=== PATIENT | male | born 1960 | race Caucasian/White ===

== ENCOUNTER 2017-09-22 10:50 | Emergency (ER) | payer MEDICARE ==
[2017-09-22] MEDS ORDERED: MORPHINE SULFATE 2 MG/ML 1ML SYG ONE (11:15)
[2017-09-22] MEDS ORDERED: METHYLPREDNISOLONE SOD SUCC 125MG/2ML VIAL ONE (11:15)
== END 2017-09-22 13:22 | disposition home or self-care (01) ==
LOC: EDH 10:50
DX: M10.9 Gout, unspecified (principal); I25.10 Atherosclerotic heart disease of native coronary artery without angina pectoris; E11.9 Type 2 diabetes mellitus without complications; E78.00 Pure hypercholesterolemia, unspecified; I10 Essential (primary) hypertension; I25.2 Old myocardial infarction; E78.5 Hyperlipidemia, unspecified
CPT/HCPCS: 96372 ×2; 99284; J2930

== ENCOUNTER 2017-09-23 11:40 | Emergency (ER) | payer MEDICARE ==
[2017-09-23] MEDS ORDERED: INSULIN HUMULIN R 100 UNIT/ML 3ML ONE ×3 (12:53→16:04)
[2017-09-23 13:20] LABS: ALBUMIN 3.7 g/dL (3.5-5.0); BILIRUBIN,TOTAL 0.5 mg/dL (0.2-1.0); CREATININE 1.3 mg/dL (0.5-1.5); POTASSIUM 4.2 mmol/L (3.5-5.1); TOTAL PROTEIN, SERUM 7.8 g/dL (6.0-8.3)
[2017-09-23 14:19] LABS: BASOPHILS % (AUTO) 0.2 % (0.0-5.0); HEMATOCRIT 38.6 % (42-54); LYMPHOCYTES % (AUTO) 3.1 % (21.0-51.0); MEAN CORPUSCULAR HEMOGLOBIN 31.7 pg (27.0-33.0); MEAN CORPUSCULAR HGB CONC 32.9 g/dL (32.0-36.0); MEAN CORPUSCULAR VOLUME 96.3 fL (79-99); NEUTROPHILS % (AUTO) 89.7 % (40.0-77.0); PLATELET COUNT (AUTO) 180 K/uL (130-400); RED BLOOD CELL COUNT(AUTO) 4.01 MIL/uL (4.50-6.20); RED CELL DISTRIBUTION WIDTH 14.9 % (11.0-15.5); WHITE BLOOD COUNT (AUTO) 15.7 K/uL (4.8-10.8)
== END 2017-09-23 17:10 | disposition home or self-care (01) ==
LOC: EDH 11:40
DX: E11.65 Type 2 diabetes mellitus with hyperglycemia (principal); I25.10 Atherosclerotic heart disease of native coronary artery without angina pectoris; E78.00 Pure hypercholesterolemia, unspecified; E78.6 Lipoprotein deficiency; I10 Essential (primary) hypertension; I25.2 Old myocardial infarction; Z98.890 Other specified postprocedural states
CPT/HCPCS: 36415; 80053; 82948 ×4; 85025; 96374; 96376; 99284; J1815 ×3

== ENCOUNTER 2017-11-08 18:09 | Inpatient (IN) | payer MEDICARE ==
[~2017-11-08] VITALS: Ht 170.2 cm; Wt 94.4 kg
[2017-11-08 18:22] LABS: BASOPHILS % (AUTO) 0.9 % (0.0-5.0); EOSINOPHILS % (AUTO) 0.1 % (0.0-8.0); HEMATOCRIT 39.9 % (42-54); LYMPHOCYTES % (AUTO) 4.9 % (21.0-51.0); MEAN CORPUSCULAR HEMOGLOBIN 31.5 pg (27.0-33.0); MEAN CORPUSCULAR HGB CONC 32.9 g/dL (32.0-36.0); MEAN CORPUSCULAR VOLUME 95.8 fL (79-99); MONOCYTES % (AUTO) 3.3 % (3.0-13.0); NEUTROPHILS % (AUTO) 90.8 % (40.0-77.0); PLATELET COUNT (AUTO) 255 K/uL (130-400); RED BLOOD CELL COUNT(AUTO) 4.17 MIL/uL (4.50-6.20); RED CELL DISTRIBUTION WIDTH 15.3 % (11.0-15.5); WHITE BLOOD COUNT (AUTO) 13.7 K/uL (4.8-10.8)
[2017-11-08] MEDS ORDERED: SODIUM CHLORIDE 0.9% 1000ML 1,000 ML IV ONE (18:31)
[2017-11-08] MEDS ORDERED: ASPIRIN 325 MG TABLET ONE (18:31)
[2017-11-08 18:33] LABS: CARBON DIOXIDE 25 mmol/L (21-32); CHLORIDE 97 mmol/L (101-111); GLOMERULAR FILTR. RATE CALC 37 mL/min (>60); GLUCOSE,RANDOM 374 mg/dL (70-105); POTASSIUM 5.3 mmol/L (3.5-5.1); SODIUM SERUM 134 mmol/L (136-145); UREA NITROGEN, BLOOD 65 mg/dL (7-18)
[2017-11-08 18:54] LABS: ALANINE AMINOTRANSFERASE 27 U/L (12-78); ASPARTATE AMINOTRANSFERASE 6 U/L (10-37); BILIRUBIN,TOTAL 0.7 mg/dL (0.2-1.0); CREATINE KINASE MB 2.8 ng/mL (0.5-3.6); CREATINE KINASE, TOTAL 75 U/L (21-232); LIPASE 699 U/L (114-286); TOTAL PROTEIN, SERUM 8.8 g/dL (6.0-8.3)
[2017-11-08 18:55] LABS: ALBUMIN < 0.6 g/dL (3.5-5.0)
[2017-11-08 19:57] LABS: BILIRUBIN,URINE Negative (NEGATIVE); COLOR,URINE Yellow (YELLOW); GLUCOSE, URINE (UA) 500 mg/dL (NEGATIVE); KETONES,URINE Negative (NEGATIVE); LEUKOCYTE ESTERASE ,URINE Negative (NEGATIVE); NITRATE,URINE Negative (NEGATIVE); OCCULT BLOOD,URINE Negative (NEGATIVE); PROTEIN,URINE Negative (NEGATIVE); UROBILINOGEN,URINE 0.2 mg/dL (0.2-1.0)
[2017-11-08 20:00] LABS: APPEARANCE,URINE CLEAR (CLEAR)
[2017-11-08] MEDS ORDERED: LIDOCAINE HCL 2% VISCOUS 15 ML UDCUP ONE (20:15)
[2017-11-08] MEDS ORDERED: MAGNESIUM HYDROXIDE 30 ML/UDCUP ONE (20:15)
[2017-11-08 20:20] LABS: BACTERIA,URINE Rare /HPF (None Seen); RBC,URINE 0-1 /HPF (0-1); SQUAMOUS EPITHELIAL CELL,UR Rare /HPF (0-2); WBC,URINE 0-1 /HPF (0-1)
[2017-11-08 20:21] LABS: HYALINE CASTS, URINE 26-50 /LPF (0-1 /LPF)
[2017-11-08] MEDS ORDERED: NITROGLYCERIN 0.4 MG SL TAB SL ONE (22:22)
[2017-11-09] MEDS ORDERED: NITROGLYCERIN 1GM/1 INCH PACKET TD ONE ×2 (00:27→08:30)
[2017-11-09] MEDS ORDERED: ONDANSETRON HCL MDV 20ML 2 MG/ML VIAL IV PRN (02:15)
[2017-11-09] MEDS ORDERED: NITROGLYCERIN 1GM/1 INCH PACKET TD SCH (02:15)
[2017-11-09] MEDS ORDERED: CEFTRIAXONE 1GM/D5W 50ML 50 ML IV SCH ×2 (02:15→14:15)
[2017-11-09] MEDS ORDERED: ACETAMINOPHEN-CODEINE 300/30MG TAB PO PRN (02:15)
[2017-11-09] MEDS ORDERED: VANCOMYCIN 1GM+NS 250ML 250 ML IV SCH (02:15)
[2017-11-09] MEDS ORDERED: ACETAMINOPHEN 325 MG TAB PO PRN ×2 (02:15)
[2017-11-09] MEDS ORDERED: MORPHINE SULFATE 2 MG/ML 1ML SYG IV PRN (02:15)
[2017-11-09] MEDS ORDERED: NITROGLYCERIN 0.4 MG SL TAB SL PRN (02:15)
[2017-11-09] MEDS ORDERED: VANCOMYCIN 1GM+NS 250ML 250 ML IV ONE (02:50)
[2017-11-09] MEDS ORDERED: CEFTRIAXONE SODIUM 1 GM ONE (02:51)
[2017-11-09 03:27] LABS: CREATINE KINASE MB 11.4 ng/mL (0.5-3.6)
[2017-11-09 03:29] LABS: TROPONIN I 6.9 ng/mL (0.00-0.06)
[2017-11-09] MEDS ORDERED: VANCOMYCIN PROTOCOL PER PHARMACY IV SCH (03:45)
[2017-11-09] MEDS ORDERED: ENOXAPARIN SODIUM 100 MG/1 ML SQ ONE (03:48)
[2017-11-09] MEDS ORDERED: CEFTRIAXONE SODIUM 1 GM IVP SCH (04:00)
[2017-11-09] MEDS: INSULIN HUMULIN R 100 UNIT/ML 3ML SQ SCH ×4 (07:30→21:28)
[2017-11-09] MEDS ORDERED: ASPIRIN 325 MG TABLET ONE (08:30)
[2017-11-09] MEDS ORDERED: PANTOPRAZOLE SODIUM 40 MG TABLET.DR PO ONE (08:30)
[2017-11-09] MEDS ORDERED: METOPROLOL TARTRATE 25 MG TAB ONE (08:31)
[2017-11-09] MEDS ORDERED: INSULIN HUMULIN R 100 UNIT/ML 3ML ONE ×2 (08:40→14:31)
[2017-11-09] MEDS ORDERED: ASPIRIN 325 MG TABLET PO SCH (09:00)
[2017-11-09] MEDS ORDERED: METOPROLOL TARTRATE 25 MG TAB PO SCH (09:00)
[2017-11-09 10:03] LABS: CREATINE KINASE MB 20.9 ng/mL (0.5-3.6)
[2017-11-09 10:05] LABS: TROPONIN I 15.89 ng/mL (0.00-0.06)
[2017-11-09] MEDS ORDERED: NITROGLYCERIN 50 MG/D5% WATER 1 BOT ONE (10:55)
[2017-11-09] MEDS: TORSEMIDE 20 MG TAB PO SCH (13:00)
[2017-11-09] MEDS ORDERED: CLOPIDOGREL BISULFATE 75 MG TAB ONE (14:10)
[2017-11-09] MEDS ORDERED: MORPHINE SULFATE 2 MG/ML 1ML SYG IVP PRN (14:15)
[2017-11-09] MEDS ORDERED: MORPHINE SULFATE 4 MG/1ML SYG IVP PRN (14:15)
[2017-11-09] MEDS: CEFTRIAXONE SODIUM 1 GM IVP SCH (15:00)
[2017-11-09 16:08] LABS: CREATININE 1.5 mg/dL (0.5-1.5); POTASSIUM 4.5 mmol/L (3.5-5.1)
[2017-11-09] MEDS: NITROGLYCERIN 1GM/1 INCH PACKET TD SCH ×2 (16:11→17:05)
[2017-11-09 16:38] LABS: TROPONIN I 14.51 ng/mL (0.00-0.06)
[2017-11-09 16:46] VITALS: BP 116/73
[2017-11-09] MEDS ORDERED: CARV25TA PO (16:47)
[2017-11-09] MEDS ORDERED: ALLO300T2 PO (16:47)
[2017-11-09] MEDS ORDERED: PNV1TABL77 PO (16:47)
[2017-11-09] MEDS ORDERED: ATOR40TA69 PO (16:47)
[2017-11-09] MEDS ORDERED: GLYB5TAB8 PO (16:47)
[2017-11-09] MEDS ORDERED: TORS20TA4 PO (16:47)
[2017-11-09] MEDS ORDERED: KRIL1CAP29 PO (16:47)
[2017-11-09] MEDS ORDERED: SPIR25TA PO (16:47)
[2017-11-09] MEDS ORDERED: CLOP75TA32 PO (16:47)
[2017-11-09] MEDS ORDERED: ENAL10TA PO (16:47)
[2017-11-09] MEDS: PANTOPRAZOLE SODIUM 40 MG TABLET.DR PO SCH (17:06)
[2017-11-09] MEDS ORDERED: PNEUMOCOCCAL VACCINE POLYVALENT 0.5 ML/VIAL [PPV] IM SCH (17:45)
[2017-11-09 19:05] VITALS: BP 121/87
[2017-11-09] MEDS ORDERED: ISOS30TA6 PO (19:06)
[2017-11-09] MEDS: ATORVASTATIN CALCIUM 40 MG TABLET PO SCH (20:05)
[2017-11-09] MEDS: CARVEDILOL 25 MG TABLET PO SCH (20:06)
[2017-11-09] MEDS: INSULIN GLARGINE 100 UNITS/ML 10 ML VIAL SQ SCH (20:11)
[2017-11-09 22:04] LABS: CREATINE KINASE MB 11.1 ng/mL (0.5-3.6)
[2017-11-09 22:07] LABS: TROPONIN I 9.77 ng/mL (0.00-0.06)
[2017-11-09 23:15] VITALS: BP 125/80
[2017-11-10] MEDS: NITROGLYCERIN 1GM/1 INCH PACKET TD SCH ×3 (00:11→16:11)
[2017-11-10 03:27] VITALS: BP 108/65
[2017-11-10 03:48] LABS: APPEARANCE,URINE Clear (CLEAR); BILIRUBIN,URINE Negative (NEGATIVE); COLOR,URINE Yellow (YELLOW); GLUCOSE, URINE (UA) Negative (NEGATIVE); KETONES,URINE Negative (NEGATIVE); LEUKOCYTE ESTERASE ,URINE Negative (NEGATIVE); NITRATE,URINE Negative (NEGATIVE); OCCULT BLOOD,URINE Negative (NEGATIVE); PROTEIN,URINE Negative (NEGATIVE); UROBILINOGEN,URINE 0.2 mg/dL (0.2-1.0)
[2017-11-10 05:04] LABS: MEAN CORPUSCULAR HEMOGLOBIN 31.9 pg (27.0-33.0); MEAN CORPUSCULAR HGB CONC 33.5 g/dL (32.0-36.0); MEAN CORPUSCULAR VOLUME 95.3 fL (79-99); PLATELET COUNT (AUTO) 205 K/uL (130-400); RED BLOOD CELL COUNT(AUTO) 3.88 MIL/uL (4.50-6.20); RED CELL DISTRIBUTION WIDTH 15.7 % (11.0-15.5)
[2017-11-10] MEDS: INSULIN HUMULIN R 100 UNIT/ML 3ML SQ SCH ×4 (05:54→21:12)
[2017-11-10 06:02] LABS: CREATINE KINASE MB 5.5 ng/mL (0.5-3.6); CREATININE 1.2 mg/dL (0.5-1.5); MAGNESIUM 1.5 mg/dL (1.80-2.40); PHOSPHORUS 3.5 mg/dL (2.5-4.9); POTASSIUM 3.9 mmol/L (3.5-5.1); URIC ACID 5.7 mg/dL (2.6-7.2)
[2017-11-10] MEDS: TORSEMIDE 20 MG TAB PO SCH ×2 (06:03→12:09)
[2017-11-10 06:06] LABS: TROPONIN I 7.21 ng/mL (0.00-0.06)
[2017-11-10 07:39] VITALS: BP 109/78
[2017-11-10] MEDS ORDERED: ENALAPRIL MALEATE 10 MG TABLET PO SCH (09:00)
[2017-11-10] MEDS ORDERED: ENOXAPARIN SODIUM 100 MG/1 ML SQ SCH (09:00)
[2017-11-10] MEDS: CLOPIDOGREL BISULFATE 75 MG TAB PO SCH (09:09)
[2017-11-10] MEDS: ASPIRIN 81MG TAB.CHEW PO SCH (09:09)
[2017-11-10] MEDS: ALLOPURINOL 300 MG TABLET PO SCH (09:09)
[2017-11-10] MEDS: FOLIC ACID/VITAMIN B COMP W-C 1 MG CAPSULE PO SCH (09:09)
[2017-11-10] MEDS: CARVEDILOL 25 MG TABLET PO SCH ×2 (09:10→20:16)
[2017-11-10] MEDS: SPIRONOLACTONE 25 MG TAB PO SCH (09:10)
[2017-11-10] MEDS: ISOSORBIDE MONO 30MG TAB SR PO SCH (09:10)
[2017-11-10] MEDS: PANTOPRAZOLE SODIUM 40 MG TABLET.DR PO SCH (09:11)
[2017-11-10] MEDS ORDERED: POLYETHYLENE GLYCOL 3350 17 GM POWD.PACK ONE (09:20)
[2017-11-10 12:37] VITALS: BP 100/67
[2017-11-10] MEDS ORDERED: MAGNESIUM 2GM PREMIX 50ML 50 ML IV ONE (13:19)
[2017-11-10] MEDS: MAGNESIUM 2GM PREMIX 50ML 50 ML IV SCH (13:31)
[2017-11-10] MEDS: CEFTRIAXONE SODIUM 1 GM IVP SCH (15:23)
[2017-11-10 16:17] VITALS: BP 105/68
[2017-11-10 19:38] VITALS: BP 89/57
[2017-11-10] MEDS: ATORVASTATIN CALCIUM 40 MG TABLET PO SCH (20:16)
[2017-11-10] MEDS: POLYETHYLENE GLYCOL 3350 17 GM POWD.PACK PO SCH (20:16)
[2017-11-10] MEDS: INSULIN GLARGINE 100 UNITS/ML 10 ML VIAL SQ SCH (20:21)
[2017-11-10 23:17] VITALS: BP 108/76
[2017-11-11] MEDS: NITROGLYCERIN 1GM/1 INCH PACKET TD SCH ×3 (00:11→16:11)
[2017-11-11 03:32] VITALS: BP 95/57
[2017-11-11] MEDS: INSULIN HUMULIN R 100 UNIT/ML 3ML SQ SCH ×4 (05:50→22:43)
[2017-11-11 06:01] LABS: HEMATOCRIT 32.3 % (42-54); MEAN CORPUSCULAR HEMOGLOBIN 33.5 pg (27.0-33.0); MEAN CORPUSCULAR HGB CONC 35.2 g/dL (32.0-36.0); MEAN CORPUSCULAR VOLUME 95.3 fL (79-99); PLATELET COUNT (AUTO) 183 K/uL (130-400); RED BLOOD CELL COUNT(AUTO) 3.39 MIL/uL (4.50-6.20); RED CELL DISTRIBUTION WIDTH 15.3 % (11.0-15.5); WHITE BLOOD COUNT (AUTO) 8.6 K/uL (4.8-10.8)
[2017-11-11 06:11] LABS: CREATININE 1.1 mg/dL (0.5-1.5); MAGNESIUM 1.8 mg/dL (1.80-2.40); PHOSPHORUS 4.9 mg/dL (2.5-4.9); POTASSIUM 3.5 mmol/L (3.5-5.1)
[2017-11-11] MEDS: TORSEMIDE 20 MG TAB PO SCH ×2 (06:14→16:58)
[2017-11-11 07:40] LABS: EOSINOPHILS % (MANUAL) 4 % (1-6); LYMPHOCYTES % (MANUAL) 12 % (22-44); MAN.DIFF COMMENT-IMPRESSION MANUAL DIFFERENTIAL; MONOCYTES % (MANUAL) 11 % (2-9); SEGMENTED NEUTROPHILS % 73 % (40-70)
[2017-11-11 08:00] VITALS: BP 98/63
[2017-11-11] MEDS: ISOSORBIDE MONO 30MG TAB SR PO SCH ×2 (09:00→09:27)
[2017-11-11] MEDS ORDERED: ALLOPURINOL 300 MG TABLET PO SCH (09:00)
[2017-11-11] MEDS: CARVEDILOL 25 MG TABLET PO SCH ×2 (09:27→22:31)
[2017-11-11] MEDS: PANTOPRAZOLE SODIUM 40 MG TABLET.DR PO SCH (09:27)
[2017-11-11] MEDS: CLOPIDOGREL BISULFATE 75 MG TAB PO SCH (09:27)
[2017-11-11] MEDS: FOLIC ACID/VITAMIN B COMP W-C 1 MG CAPSULE PO SCH (09:28)
[2017-11-11] MEDS: ASPIRIN 81MG TAB.CHEW PO SCH (09:28)
[2017-11-11] MEDS: FISH OIL 1000 MG/CAP PO SCH (09:28)
[2017-11-11] MEDS: GLYBURIDE 5 MG TABLET PO SCH ×2 (09:28→22:30)
[2017-11-11] MEDS: ENALAPRIL MALEATE 5 MG TAB PO SCH (09:29)
[2017-11-11] MEDS: ENOXAPARIN SODIUM 40 MG/0.4 ML SYRINGE SQ SCH (09:32)
[2017-11-11] MEDS: SPIRONOLACTONE 25 MG TAB PO SCH (09:39)
[2017-11-11] MEDS: POLYETHYLENE GLYCOL 3350 17 GM POWD.PACK PO SCH ×2 (09:40→22:33)
[2017-11-11] MEDS: ALLOPURINOL 300 MG TABLET PO SCH (09:41)
[2017-11-11] MEDS: PRENATAL VITAMIN RX TABLET PO SCH (10:41)
[2017-11-11 11:00] VITALS: BP 96/67
[2017-11-11 16:00] VITALS: BP 86/57
[2017-11-11] MEDS: CEFTRIAXONE SODIUM 1 GM IVP SCH (16:31)
[2017-11-11 19:00] VITALS: BP 106/78
[2017-11-11 22:20] VITALS: BP 111/72
[2017-11-11] MEDS: MAGNESIUM 2GM PREMIX 50ML 50 ML IV SCH (22:27)
[2017-11-11] MEDS ORDERED: POTASSIUM CHLORIDE 20 MEQ ERTAB PO PRN (22:30)
[2017-11-11] MEDS ORDERED: POTASSIUM CHLORIDE 20MEQ/100ML 100 ML IV PRN (22:30)
[2017-11-11] MEDS ORDERED: POTASSIUM CHLORIDE 10% ELIXIR 20 MEQ/15 ML UDCUP PO PRN (22:30)
[2017-11-11] MEDS ORDERED: LIDOCAINE HCL-MPF 1% 2ML VIAL IVP PRN (22:30)
[2017-11-11] MEDS: ATORVASTATIN CALCIUM 40 MG TABLET PO SCH (22:30)
[2017-11-12] VITALS: BP 93/56
[2017-11-12] MEDS: NITROGLYCERIN 1GM/1 INCH PACKET TD SCH (00:11)
[2017-11-12 04:00] VITALS: BP 97/63
[2017-11-12 04:57] LABS: HEMATOCRIT 33.2 % (42-54); MEAN CORPUSCULAR HEMOGLOBIN 32.6 pg (27.0-33.0); MEAN CORPUSCULAR HGB CONC 34.4 g/dL (32.0-36.0); MEAN CORPUSCULAR VOLUME 94.7 fL (79-99); PLATELET COUNT (AUTO) 193 K/uL (130-400); RED CELL DISTRIBUTION WIDTH 15.4 % (11.0-15.5); WHITE BLOOD COUNT (AUTO) 8.4 K/uL (4.8-10.8)
[2017-11-12 05:05] LABS: CREATININE 1.1 mg/dL (0.5-1.5); MAGNESIUM 1.9 mg/dL (1.80-2.40); POTASSIUM 3.5 mmol/L (3.5-5.1)
[2017-11-12 05:06] LABS: EOSINOPHILS % (MANUAL) 8 % (1-6); LYMPHOCYTES % (MANUAL) 9 % (22-44); MAN.DIFF COMMENT-IMPRESSION MANUAL DIFFERENTIAL; MONOCYTES % (MANUAL) 5 % (2-9); SEGMENTED NEUTROPHILS % 78 % (40-70)
[2017-11-12 05:07] LABS: PLATELET MORPHOLOGY COMMENT ADEQUATE
[2017-11-12] MEDS: MAGNESIUM 2GM PREMIX 50ML 50 ML IV SCH (06:31)
[2017-11-12] MEDS: INSULIN HUMULIN R 100 UNIT/ML 3ML SQ SCH ×2 (06:32→12:18)
[2017-11-12] MEDS: TORSEMIDE 20 MG TAB PO SCH ×2 (06:32→12:26)
[2017-11-12 08:00] VITALS: BP_SYST 112; BP_SYST 151; BP_DIAS 73; BP_DIAS 79
[2017-11-12] MEDS: ISOSORBIDE MONO 30MG TAB SR PO SCH ×2 (09:00→09:33)
[2017-11-12] MEDS: PANTOPRAZOLE SODIUM 40 MG TABLET.DR PO SCH (09:32)
[2017-11-12] MEDS: CLOPIDOGREL BISULFATE 75 MG TAB PO SCH (09:32)
[2017-11-12] MEDS: FOLIC ACID/VITAMIN B COMP W-C 1 MG CAPSULE PO SCH (09:32)
[2017-11-12] MEDS: ASPIRIN 81MG TAB.CHEW PO SCH (09:32)
[2017-11-12] MEDS: FISH OIL 1000 MG/CAP PO SCH (09:32)
[2017-11-12] MEDS: ALLOPURINOL 300 MG TABLET PO SCH (09:32)
[2017-11-12] MEDS: CARVEDILOL 25 MG TABLET PO SCH (09:32)
[2017-11-12] MEDS: PRENATAL VITAMIN RX TABLET PO SCH (09:33)
[2017-11-12] MEDS: GLYBURIDE 5 MG TABLET PO SCH (09:33)
[2017-11-12] MEDS: POLYETHYLENE GLYCOL 3350 17 GM POWD.PACK PO SCH (09:34)
[2017-11-12] MEDS: SPIRONOLACTONE 25 MG TAB PO SCH (09:34)
[2017-11-12] MEDS: ENALAPRIL MALEATE 5 MG TAB PO SCH (09:34)
[2017-11-12] MEDS: ENOXAPARIN SODIUM 40 MG/0.4 ML SYRINGE SQ SCH (09:35)
[2017-11-12] MEDS ORDERED: LISI2.5T2 PO (09:57)
[2017-11-12] MEDS ORDERED: AMOX-426 PO (09:57)
[2017-11-12 11:00] VITALS: BP 96/73
== END 2017-11-12 13:05 | disposition home or self-care (01) | DRG 281 ==
LOC: EDH 18:09 → OBSVTOIN 19:44 → EDHIP 19:44 → 3AH 11-09 15:33
PROVIDERS: ADMIT Internal Medicine; ATTEND Internal Medicine
PROC: 3E0234Z Introduction of Serum, Toxoid and Vaccine into Muscle, Percutaneous Approach (ICD-10-PCS; principal; 2017-11-10)
DX: I21.4 Non-ST elevation (NSTEMI) myocardial infarction (principal); L03.115 Cellulitis of right lower limb; N17.9 Acute kidney failure, unspecified; E11.21 Type 2 diabetes mellitus with diabetic nephropathy; I42.9 Cardiomyopathy, unspecified; E83.42 Hypomagnesemia; E11.42 Type 2 diabetes mellitus with diabetic polyneuropathy; I13.0 Hypertensive heart and chronic kidney disease with heart failure and stage 1 through stage 4 chronic kidney disease, or unspecified chronic kidney disease; E87.1 Hypo-osmolality and hyponatremia; N18.9 Chronic kidney disease, unspecified; E78.5 Hyperlipidemia, unspecified; G47.33 Obstructive sleep apnea (adult) (pediatric); I25.10 Atherosclerotic heart disease of native coronary artery without angina pectoris; E11.22 Type 2 diabetes mellitus with diabetic chronic kidney disease; E11.51 Type 2 diabetes mellitus with diabetic peripheral angiopathy without gangrene; E66.9 Obesity, unspecified; E87.5 Hyperkalemia; F17.200 Nicotine dependence, unspecified, uncomplicated; I50.9 Heart failure, unspecified; E78.00 Pure hypercholesterolemia, unspecified; M10.9 Gout, unspecified; Z79.82 Long term (current) use of aspirin; I25.2 Old myocardial infarction; Z95.5 Presence of coronary angioplasty implant and graft; Z82.49 Family history of ischemic heart disease and other diseases of the circulatory system; Z68.32 Body mass index [BMI] 32.0-32.9, adult; Z23 Encounter for immunization
CPT/HCPCS: 36415; 71045; 76770; 80048; 80053; 80061; 81001; 81003; 82550; 82553; 82948; 83690; 83735; 83874; 84100; 84484; 84550; 85025; 85027; 90732; 93005; A4218; G0009; J0696; J1650; J1815; J3370; J3475; J3490; J7030

== ENCOUNTER 2017-12-25 18:12 | Emergency (ER) | payer MEDICARE ==
[~2017-12-25 18:12] MED LIST: ALLO300T2 PO; AMOX-426 PO; ATOR40TA69 PO; CARV25TA PO; CLOP75TA32 PO; ENAL10TA PO; GLYB5TAB8 PO; ISOS30TA6 PO; KRIL1CAP29 PO; LISI2.5T2 PO; PNV1TABL77 PO; SPIR25TA PO; TORS20TA4 PO
[2017-12-25] MEDS ORDERED: SODIUM CHLORIDE 0.9% 1000ML 1,000 ML IV ONE (19:57)
[2017-12-25] MEDS ORDERED: INSULIN HUMULIN R 100 UNIT/ML 3ML ONE (19:58)
[2017-12-25 20:02] LABS: BASOPHILS % (AUTO) 1.3 % (0.0-5.0); EOSINOPHILS % (AUTO) 6.3 % (0.0-8.0); HEMATOCRIT 39.1 % (42-54); LYMPHOCYTES % (AUTO) 20.5 % (21.0-51.0); MEAN CORPUSCULAR HGB CONC 34.3 g/dL (32.0-36.0); MEAN CORPUSCULAR VOLUME 96.2 fL (79-99); MONOCYTES % (AUTO) 8.8 % (3.0-13.0); NEUTROPHILS % (AUTO) 63.1 % (40.0-77.0); NUCLEATED RED BLOOD CELLS 0.1 % (0.0-0.19); PLATELET COUNT (AUTO) 187 K/uL (130-400); RED BLOOD CELL COUNT(AUTO) 4.06 MIL/uL (4.50-6.20); RED CELL DISTRIBUTION WIDTH 15.4 % (11.0-15.5); WHITE BLOOD COUNT (AUTO) 7.2 K/uL (4.8-10.8)
[2017-12-25 20:18] LABS: ALBUMIN 3.7 g/dL (3.5-5.0); BILIRUBIN,TOTAL 0.5 mg/dL (0.2-1.0); CREATININE 1.2 mg/dL (0.5-1.5); POTASSIUM 3.9 mmol/L (3.5-5.1); TOTAL PROTEIN, SERUM 7.8 g/dL (6.0-8.3)
== END 2017-12-25 22:19 | disposition home or self-care (01) ==
LOC: EDH 18:12
DX: E11.65 Type 2 diabetes mellitus with hyperglycemia (principal); I25.10 Atherosclerotic heart disease of native coronary artery without angina pectoris; E11.9 Type 2 diabetes mellitus without complications; E78.00 Pure hypercholesterolemia, unspecified; E78.5 Hyperlipidemia, unspecified; I25.2 Old myocardial infarction; I11.0 Hypertensive heart disease with heart failure; I50.9 Heart failure, unspecified; M19.90 Unspecified osteoarthritis, unspecified site; M10.9 Gout, unspecified; Z98.890 Other specified postprocedural states
CPT/HCPCS: 36415; 80053; 82948 ×2; 84484; 85025; 93005; 96361; 96374; 99285; J1815; J7030

== ENCOUNTER → 2020-09-06 | Outpatient (CLI) | payer MEDICARE ==
[~2020-09-06] MED LIST changes: -ENAL10TA PO; +ENAL10TA18 PO
== END | disposition home or self-care (01) ==
LOC: SLP 20:11
PROVIDERS: ATTEND Internal Medicine Advanced Heart Failure and Transplant Cardiology
DX: G47.33 Obstructive sleep apnea (adult) (pediatric) (principal); E11.9 Type 2 diabetes mellitus without complications; E66.9 Obesity, unspecified; I11.0 Hypertensive heart disease with heart failure; I50.9 Heart failure, unspecified; Z95.811 Presence of heart assist device
CPT/HCPCS: 95811

== ENCOUNTER 2021-12-10 17:13 | Emergency (ER) | payer MEDICARE ==
[~2021-12-10] VITALS: Ht 170.2 cm; Wt 98.0 kg
[~2021-12-10 17:13] MED LIST changes: -ISOS30TA6 PO; +ISOS30TA92 PO; +LISI2.5T13 PO; -LISI2.5T2 PO
[2021-12-10 17:57] LABS: BASOPHILS % (AUTO) 0.7 % (0.0-5.0); EOSINOPHILS % (AUTO) 1.5 % (0.0-8.0); HEMATOCRIT 21.8 % (42-54); LYMPHOCYTES % (AUTO) 7.2 % (21.0-51.0); MEAN CORPUSCULAR HEMOGLOBIN 29.2 pg (27.0-33.0); MEAN CORPUSCULAR HGB CONC 31.2 g/dL (32.0-36.0); MEAN CORPUSCULAR VOLUME 93.6 fL (79-99); MONOCYTES % (AUTO) 7.9 % (3.0-13.0); NEUTROPHILS % (AUTO) 82.1 % (40.0-77.0); NUCLEATED RED BLOOD CELLS 0.2 % (0.0-0.19); PLATELET COUNT (AUTO) 252 K/uL (130-400); RED BLOOD CELL COUNT(AUTO) 2.33 MIL/uL (4.50-6.20); RED CELL DISTRIBUTION WIDTH 15.8 % (11.0-15.5)
[2021-12-10 18:07] LABS: CREATININE 1.4 mg/dL (0.5-1.5); POTASSIUM 4.2 mmol/L (3.5-5.1)
[2021-12-10 18:10] LABS: INR 1.51 (0.85-1.15); PROTHROMBIN TIME 15.9 SEC (9.6-11.6)
[2021-12-10 18:11] LABS: PARTIAL THROMBOPLASTIN TIME 26.2 SEC (26.3-35.5)
[2021-12-10 18:21] LABS: ALBUMIN 3.3 g/dL (3.5-5.0); BILIRUBIN,TOTAL 0.4 mg/dL (0.2-1.0); TOTAL PROTEIN, SERUM 6.5 g/dL (6.0-8.3)
[2021-12-10] MEDS ORDERED: 0.9% NACL 500ML IV.SOLN 500 ML IV ONE (21:36)
[2021-12-11 03:52] LABS: HEMATOCRIT 27.9 % (42-54); MEAN CORPUSCULAR HEMOGLOBIN 30.2 pg (27.0-33.0); MEAN CORPUSCULAR VOLUME 91.5 fL (79-99); NUCLEATED RED BLOOD CELLS 0.1 % (0.0-0.19); RED BLOOD CELL COUNT(AUTO) 3.05 MIL/uL (4.50-6.20); RED CELL DISTRIBUTION WIDTH 16.4 % (11.0-15.5); WHITE BLOOD COUNT (AUTO) 14.6 K/uL (4.8-10.8)
[2021-12-11 04:04] VITALS: BP 103/65
== END 2021-12-11 04:17 | disposition short-term general hospital (02) ==
LOC: EDH 17:13
DX: D64.9 Anemia, unspecified (principal); K92.2 Gastrointestinal hemorrhage, unspecified; K92.1 Melena; R42 Dizziness and giddiness; Z20.822 Contact with and (suspected) exposure to COVID-19; I11.0 Hypertensive heart disease with heart failure; I50.9 Heart failure, unspecified; E78.00 Pure hypercholesterolemia, unspecified; E10.9 Type 1 diabetes mellitus without complications; Z95.811 Presence of heart assist device; Z79.899 Other long term (current) drug therapy
CPT/HCPCS: 36415 ×2; 36430; 71045; 80053; 82270; 82948; 83880; 84484; 85025; 85027; 85610; 85730; 86850; 86900; 86901; 86923; 87635; 93005; 96360; 96361; 99291; C9803; J7040; P9016 ×2

== ENCOUNTER 2022-03-01 07:52 | Emergency (ER) | payer MEDICARE ==
[~2022-03-01] VITALS: Ht 167.6 cm; Wt 99.8 kg
[2022-03-01 07:55] VITALS: BP 107/62
[2022-03-01] MEDS ORDERED: LIDOCAINE 5% TOPICAL PATCH TP ONE (09:30)
[2022-03-01] MEDS ORDERED: ACETAMINOPHEN 500 MG TABLET PO ONE (09:30)
[2022-03-01] MEDS ORDERED: CYCLOBENZAPRINE HCL 10 MG TABLET PO ONE (09:30)
[2022-03-01] MEDS ORDERED: LIDOP TD (11:17)
[2022-03-01] MEDS ORDERED: CYCL10TA16 PO (11:17)
[2022-03-01] MEDS ORDERED: ACET-2743 PO (11:17)
[2022-03-01] MEDS ORDERED: MORPHINE 4 MG SYG IM ONE (12:00)
== END 2022-03-01 11:58 | disposition home or self-care (01) ==
LOC: EDH 07:52
DX: M62.830 Muscle spasm of back (principal); E11.9 Type 2 diabetes mellitus without complications; E78.00 Pure hypercholesterolemia, unspecified; I11.0 Hypertensive heart disease with heart failure; I50.9 Heart failure, unspecified; M10.9 Gout, unspecified; K21.9 Gastro-esophageal reflux disease without esophagitis; Z79.84 Long term (current) use of oral hypoglycemic drugs; Z79.899 Other long term (current) drug therapy